=== PATIENT | male | born 1980 | race Caucasian/White ===

== ENCOUNTER 2019-10-22 23:55 | Emergency (ER) | payer MEDICAID ==
[~2019-10-22] VITALS: Ht 167.6 cm; Wt 77.0 kg
[2019-10-23] MEDS ORDERED: SODIUM CHLORIDE 0.9% 1,000 ML IV ONE (00:17)
[2019-10-23 00:55] LABS: BASOPHILS % 0.4 % (0.0-2.0); EOSINOPHILS % 0.1 % (0.0-5.0); HEMATOCRIT. 39.8 % (42.0-52.0); HEMOGLOBIN. 13.4 g/dL (14.0-18.0); LYMPHOCYTES % 9.1 % (20.0-50.0); MEAN CORPUSCULAR HEMOGLOBIN 30.2 pg (28.0-32.0); MEAN CORPUSCULAR VOLUME 89.9 fL (80.0-94.0); MEAN PLATELET VOLUME 8.9 fl (7.4-10.4); MONOCYTES % 6.5 % (2.0-8.0); NEUTROPHILS % 83.9 % (40.0-76.0); PLATELET 267 x1000/uL (130-400); RED BLOOD CELL COUNT 4.43 mill/uL (4.7-6.1); RED CELL DISTRIBUTION WIDTH 13.9 % (11.6-14.6)
[2019-10-23 01:00] LABS: CHLORIDE 103 mEq/L (98-107)
[2019-10-23 02:36] LABS: *AMPHETAMINES SCREEN URINE NEGATIVE (NEGATIVE)
[2019-10-23 02:37] LABS: *BARBITURATES SCREEN URINE NEGATIVE (NEGATIVE); *BENZODIAZEPINES SCREEN URINE NEGATIVE (NEGATIVE); *COCAINE SCREEN URINE NEGATIVE (NEGATIVE); METHADONE URINE SCREEN NEGATIVE (NEGATIVE); OPIATES URINE SCREEN NEGATIVE (NEGATIVE)
[2019-10-23 02:38] LABS: CANNABINOID URINE SCREEN NEGATIVE (NEGATIVE); PHENCYCLIDINE URINE SCREEN NEGATIVE (NEGATIVE)
[2019-10-23 02:45] VITALS: BP 125/82
== END 2019-10-23 02:59 | disposition home or self-care (01) ==
LOC: ER 23:55
DX: R06.02 Shortness of breath (principal); Z86.19 Personal history of other infectious and parasitic diseases
CPT/HCPCS: 36415; 71045; 80048; 80305; 85025; 96360; 99284; J7030